=== PATIENT | male | born 1985 | race African-American/Black ===

== ENCOUNTER 2022-04-15 14:49 | Emergency (ER) | payer BC ==
[~2022-04-15] VITALS: Ht 172.7 cm; Wt 95.0 kg
[2022-04-15] MEDS ORDERED: SODIUM CHLORIDE 0.9% 1,000 ML IV ONE ×2 (15:00→18:00)
[2022-04-15] MEDS ORDERED: MIDAZOLAM HCL 2 MG/2 ML VIAL IV ONE (15:00)
[2022-04-15] MEDS ORDERED: HALOPERIDOL LACTATE 5MG/ML VIAL IM ONE (15:30)
[2022-04-15] MEDS ORDERED: DIPHENHYDRAMINE 50MG/ML VIAL IV ONE (15:30)
[2022-04-15 15:43] LABS: BASOPHILS % 0.2 % (0.0-2.0); EOSINOPHILS % 0.1 % (0.0-5.0); HEMATOCRIT. 43.1 % (42.0-52.0); HEMOGLOBIN. 14.2 g/dL (14.0-18.0); LYMPHOCYTES % 11.3 % (20.0-50.0); MEAN CORPUSCULAR HEMOGLOBIN 30.7 pg (28.0-32.0); MEAN CORPUSCULAR VOLUME 92.8 fL (80.0-94.0); MEAN PLATELET VOLUME 9.2 fl (7.4-10.4); MONOCYTES % 4.4 % (2.0-8.0); PLATELET 285 x1000/uL (130-400); RED BLOOD CELL COUNT 4.64 mill/uL (4.7-6.1); RED CELL DISTRIBUTION WIDTH 13.8 % (11.6-14.6)
[2022-04-15 15:48] LABS: CHLORIDE 109 mEq/L (98-107)
[2022-04-15 16:00] LABS: CREATINE KINASE 464 IU/L (39-308); ETHANOL BLOOD < 10 mg/dL
[2022-04-15 16:06] LABS: CLARITY URINE CLEAR (CLEAR); COLOR URINE YELLOW (YELLOW); KETONES URINE 1+ (NEGATIVE); LEUKOCYTE ESTERASE URINE NEGATIVE (NEGATIVE); NITRITE URINE NEGATIVE (NEGATIVE); OCCULT BLOOD URINE TRACE (NEGATIVE); PROTEIN URINE 2+ (NEGATIVE); SPECIFIC GRAVITY URINE 1.025 (1.005-1.030); UROBILINOGEN URINE 0.2 E.U./dL (0.2-1.0)
[2022-04-15 16:33] LABS: *AMPHETAMINES SCREEN URINE PRESUMTIVE POSITIVE (NEGATIVE); *BARBITURATES SCREEN URINE NEGATIVE (NEGATIVE); *BENZODIAZEPINES SCREEN URINE NEGATIVE (NEGATIVE); *COCAINE SCREEN URINE NEGATIVE (NEGATIVE); CANNABINOID URINE SCREEN NEGATIVE (NEGATIVE); METHADONE URINE SCREEN NEGATIVE (NEGATIVE); OPIATES URINE SCREEN NEGATIVE (NEGATIVE); PHENCYCLIDINE URINE SCREEN NEGATIVE (NEGATIVE)
[2022-04-16 12:00] VITALS: BP 122/83
== END 2022-04-16 16:13 | disposition home or self-care (01) ==
LOC: ER 14:49
DX: F15.251 Other stimulant dependence with stimulant-induced psychotic disorder with hallucinations (principal); R45.851 Suicidal ideations; R00.0 Tachycardia, unspecified; R44.1 Visual hallucinations; R61 Generalized hyperhidrosis; R45.1 Restlessness and agitation; F33.1 Major depressive disorder, recurrent, moderate; F16.90 Hallucinogen use, unspecified, uncomplicated; Z20.822 Contact with and (suspected) exposure to COVID-19; Z78.1 Physical restraint status
CPT/HCPCS: 36415; 70450; 71045; 80053; 80305; 80320; 81003; 82550; 84484; 85025; 93005; 96361; 96372; 96374; 96375; 99291; C9803; J1200; J1630; J2250; U0003; U0005; G0480

== ENCOUNTER 2022-06-29 00:43 | Emergency (ER) | payer BC ==
[~2022-06-29] VITALS: Ht 167.6 cm; Wt 86.0 kg
[2022-06-29 00:44] VITALS: BP 148/76
[2022-06-29] MEDS ORDERED: SODIUM CHLORIDE 0.9% 1,000 ML IV ONE (01:15)
[2022-06-29] MEDS ORDERED: MIDAZOLAM HCL 2 MG/2 ML VIAL IV ONE (01:15)
== END 2022-06-29 06:12 | disposition left against medical advice (07) ==
LOC: ER 01:04
DX: T43.651A Poisoning by methamphetamines accidental (unintentional), initial encounter (principal); R00.0 Tachycardia, unspecified; R42 Dizziness and giddiness; R61 Generalized hyperhidrosis; F15.188 Other stimulant abuse with other stimulant-induced disorder; Y92.89 Other specified places as the place of occurrence of the external cause
CPT/HCPCS: 93005; 99291; J7030